=== PATIENT | female | born 1970 | race Caucasian/White ===

== ENCOUNTER 2018-09-06 17:19 | Emergency (ER) | payer BC, MEDICARE ==
[~2018-09-06] VITALS: Ht 160 cm; Wt 70.0 kg
[~2018-09-06 17:19] MED LIST: ASPI-12 PO; ASPI-144 PO; CALC500T11 PO; CETI10CA PO; CHOL400T57 CORPAK; FENT1PAT11 TD; GABA300C PO; HYDR-4353 PO; METO50TA7 PO; MOME17SP BOTHNARES; MONT10TA21 PO; MULT-1085 PO; OMEP40CA37 PO; PEG15DRO4 EACHEYE; RANI150T44 PO; SYN0.088T PO; TIZA2TAB4 PO; VENL75CA55 PO; ZOLM5TAB9 PO; ZOLP10TA PO
[2018-09-06] MEDS ORDERED: diphenhydrAMINE 50 mg/ml inj IV ONE (17:40)
[2018-09-06] MEDS ORDERED: LORazepam 2 mg/ml vial IV ONE (18:00)
[2018-09-06 18:21] LABS: BASOPHILS % (AUTO) 0.3 % (0-1); EOSINOPHILS # (AUTO) 0.2 X10'3 (0-0.9); EOSINOPHILS % (AUTO) 1.9 % (0-6); HEMOGLOBIN 12.3 g/dl (12.0-16.0); LYMPHOCYTES # (AUTO) 1.3 X10'3 (1.1-4.8); MEAN CORPUSCULAR HEMOGLOBIN 30.7 PG (27.0-31.0); MEAN CORPUSCULAR HGB CONC 33.2 % (33.0-36.5); MEAN CORPUSCULAR VOLUME 92.4 FL (78-98); MEAN PLATELET VOLUME 9.3 FL (7.4-10.4); MONOCYTES # (AUTO) 0.7 X10'3 (0-0.9); MONOCYTES % (AUTO) 7.4 % (2-12); NEUTROPHILS # (AUTO) 7.3 X10'3 (1.8-7.7); NEUTROPHILS % (AUTO) 76.4 % (42-75); PLATELET COUNT 239 X10'3 (140-440); RED BLOOD COUNT 4.01 X10'6 (4.20-5.60); RED CELL DISTRIBUTION WIDTH 13.1 % (11.5-14.5); WHITE BLOOD COUNT 9.6 X10'3 (4.5-11.0)
[2018-09-06 18:35] LABS: ALANINE AMINOTRANSFERASE 25 U/L (12-78); ALBUMIN 3.7 G/DL (3.4-5.0); ALBUMIN/GLOBULIN RATIO 1.2 (1.1-1.5); ALKALINE PHOSPHATASE 77 IU/L (46-116); ANION GAP 6 (8-16); ASPARTATE AMINO TRANSFERASE 22 U/L (10-37); BILIRUBIN,TOTAL 0.4 MG/DL (0.1-1.0); BLOOD UREA NITROGEN 12 MG/DL (7-18); BUN/CREATININE RATIO 15.6 (6.6-38.0); CALCIUM 8.9 MG/DL (8.5-10.1); CHLORIDE 106 MMOL/L (99-107); CREATININE 0.77 MG/DL (0.40-0.90); GLUCOSE 88 MG/DL (70-104); MAGNESIUM 2.2 MG/DL (1.5-2.4); PHOSPHORUS 2.9 MG/DL (2.3-4.5); POTASSIUM 3.3 MMOL/L (3.5-5.1); SODIUM 140 MMOL/L (135-145); TOTAL CARBON DIOXIDE 28.2 MMOL/L (24-32); TOTAL PROTEIN 6.7 G/DL (6.4-8.2); eGFR 80 ML/MIN
[2018-09-06] MEDS ORDERED: potassium 10mEq/100ml NS w/LIDOcaine (10mg/bag) IV ONE (19:30)
[2018-09-06] MEDS ORDERED: potassium Cl 20 mEq SR tablet PO ONE (19:30)
[2018-09-06] MEDS ORDERED: ketorolac trometh. 30mg/ml inj. IV ONE (19:35)
== END 2018-09-06 20:21 | disposition home or self-care (01) ==
LOC: MERGE 17:19 → ER 17:19
DX: M62.838 Other muscle spasm (principal); M54.2 Cervicalgia; M25.511 Pain in right shoulder; G62.9 Polyneuropathy, unspecified; Z88.6 Allergy status to analgesic agent; Z79.899 Other long term (current) drug therapy; Z86.73 Personal history of transient ischemic attack (TIA), and cerebral infarction without residual deficits; Z86.718 Personal history of other venous thrombosis and embolism; Z56.0 Unemployment, unspecified
CPT/HCPCS: 36415; 70450; 80053; 83735; 84100; 85025; 96374; 96375; 99285; J1200; J1885; J2060; 99284